=== PATIENT | female | born 1970 | race Caucasian/White ===

== ENCOUNTER 2023-05-24 10:02 | Outpatient (CLI) | payer BC, SELFPAY | END 2023-05-24 10:03 | disposition home or self-care (01) | PROVIDERS: PCP Family Medicine; Visit Provider Family Medicine | DX: Z00.00 Encounter for general adult medical examination without abnormal findings (principal); Z13.6 Encounter for screening for cardiovascular disorders; Z11.59 Encounter for screening for other viral diseases | CPT/HCPCS: 80053; 80061; 86803 ==

== ENCOUNTER 2023-05-31 15:36 | Outpatient (RCR) | payer BC, SELFPAY | END 2023-07-29 09:56 | disposition home or self-care (01) | PROVIDERS: PCP Family Medicine; Visit Provider Orthopaedic Surgery Sports Medicine | DX: S76.311A Strain of muscle, fascia and tendon of the posterior muscle group at thigh level, right thigh, initial encounter (principal); R26.9 Unspecified abnormalities of gait and mobility; R53.1 Weakness; M79.18 Myalgia, other site; M79.651 Pain in right thigh; Z51.89 Encounter for other specified aftercare | CPT/HCPCS: 97110; 97161 ==

== ENCOUNTER 2023-08-31 08:57 | Outpatient (CLI) | payer BC, SELFPAY ==
--- NOTE | 2023-08-31 09:15 | MM_ITS ---
Final Report Patient: ADAMA BONNER Facility:?[facility] Patient ID:?[id number] Site Patient ID:?[id number]. Site :?1970 Study:?XRay Breast Bilateral 3D W/CAD-08/31/2023 12:06:56 PM Ordering Physician:?Tea Ro Final Report: BILATERAL DIGITAL TOMOSYNTHESIS SCREENING MAMMOGRAM WITH COMPUTER-AIDED DETECTION CLINICAL HISTORY: Routine screening exam. COMPARISON: 04.16.20 TECHNIQUE: Digital tomosynthesis mammogram in CC and MLO projections including computer- aided detection (CAD). BREAST COMPOSITION: Scattered fibroglandular densities. FINDINGS: RIGHT Breast: Normal breast tissue. No masses or achritectural distortion. No suspicious calcifications or adenopathy. LEFT Breast: Normal breast tissue. No masses or achritectural distortion. No suspicious calcifications or adenopathy. IMPRESSION: No suspicious findings. RECOMMENDATIONS: Annual bilateral screening mammography. BI-RADS category 1. Negative. Dictated by Henrik Whittaker MD @ 09/02/2023 2:06:22 PM (Electronic Signature)
== END 2023-08-31 08:58 | disposition home or self-care (01) ==
LOC: MAMMO 08:57
PROVIDERS: PCP Family Medicine; Visit Provider Family Medicine
DX: Z12.31 Encounter for screening mammogram for malignant neoplasm of breast (principal)
CPT/HCPCS: 77063; 77067

== ENCOUNTER 2024-06-08 12:01 | Outpatient (CLI) | payer BC, SELFPAY | END 2024-06-08 12:02 | disposition home or self-care (01) | PROVIDERS: PCP Family Medicine; Visit Provider Family Medicine | DX: Z00.00 Encounter for general adult medical examination without abnormal findings (principal); R53.83 Other fatigue; F41.9 Anxiety disorder, unspecified; Z86.59 Personal history of other mental and behavioral disorders; Z13.0 Encounter for screening for diseases of the blood and blood-forming organs and certain disorders involving the immune mechanism; Z13.820 Encounter for screening for osteoporosis; Z13.6 Encounter for screening for cardiovascular disorders | CPT/HCPCS: 80053; 80061; 82306; 84443 ==

== ENCOUNTER 2025-01-08 15:40 | Outpatient (CLI) | payer BC, SELFPAY ==
--- NOTE | 2025-01-08 16:00 | MM_ITS ---
Patient: ADAMA BONNER Facility:?[facility] Patient ID:?[id number] Site Patient ID:?[id number]. Site :?1970 Study:?XRay-Breast 3D Dean SCREENING-01/08/2025 4:07:08 PM Ordering Physician:Ronak Metcalf Final Report: INDICATION: BILATERAL SCREENING MAMMOGRAM, ASYMPTOMATIC 54 Y/O FEMALE COMPARISON: 08/31/2023, 04/16/2020 TECHNIQUE: Digital mammogram in CC and MLO projections including computer-aided detection (CAD) and tomosynthesis. BREAST COMPOSITION: The breasts are heterogeneously dense, which may obscure small masses. FINDINGS: No suspicious findings. ASSESSMENT: BI-RADS 2 Benign RECOMMENDATION: Annual screening mammogram. A lay language report of this examination will be provided to the patient. Dictated by: Henrik Whittaker MD @ 01/10/2025 10:17:15 Signed by:?Henrik Whittaker MD @01/10/2025 10:17:15 AM (Electronic Signature)
--- OUTSIDE RECORDS SUMMARY | 2025-01-09 00:49 | XMS_ITS | Clinical Summary ---
Author Organization [facility] Address [address] [place] [address] Phone Care Team Providers Care Flatbed Owner Operator Name Role Phone Hollie Menezes Conditions or Problems Problem Name Problem Code Onset Date Status Entry Date Provider Comment Standard Description Annotate Neck pain 23385329 (SNOMED CT) Active Nayan Brown MD Neck pain Migraine headaches 92246421 (SNOMED CT) Active Nayan Brown MD Migraine Tension headache 418634594 (SNOMED CT) Active Nayan Brown MD Tension-type headache Medications Medication Instructions Start Date Stop Date Generic Name NDC Provider PREMPRO 0.625-2.5 MG TABS TAKE 1 TABLET BY MOUTH EVERY DAY conj estrog-medroxypr ogest page [id number] Nayan Brown MD FLUOXETINE HCL 20 MG CAPS TAKE 1 CAPSULE BY MOUTH EVERY DAY fluoxetine 23036820507 Nayan Brown MD SPIRONOLACTONE 100 MG TABS TAKE 1 TABLET BY MOUTH EVERY DAY IN THE MORNING spironolactone 51102945047 Nayan Brown MD Medications Administered No information available. Allergies, Adverse Reactions, Alerts Allergy Name Reaction Description Start Date Severity Statu s Provider NO KNOWN DRUG ALLERGIES Mild Activ e Nayan Brown MD Results Date Name Value Unit Range Flag Description Office Visit: MEM PROB, INK BLENDER JACE INTRACTABL BROWN 03/20/21 fax SMOK STATUS never smoker Toba bilingual account manager smoking status Internal Other: Authorizatio n - OBS [email or web address] Yes Authoriza tion: Release of Information - Authorize [facility] - Payment and Healthcare Operations ROIAUTHOTHER Yes Authoriz ation: Release of Information - Authorize Others/Insurance - Payment and Healthcare Operations HIECONSENT Yes Consent To Release information to the Health Information Exchange (HIE) [email or web address] Yes Authorizat ion: Authorization for Noran/MDC to leave messages, voicemail, send text messages, send emails AUTHRELHCARE Yes Authoriz ation: Release/Retrieval of Information to/from Healthcare Facilities, Pharmacy Benefit Payers and Providers AUTHPRIVPRAC Yes Authoriz ation: Notice of privacy practices AUTHBENEFIT Yes Authoriza tion: Assignment of Benefits and Payment Agreement Office Visit: Office Visit 1 Yr Follow Up Pt schd fax MEDS REVIEW Done Documenta tion of current medications (procedure) Plan of Care Type Date Detail Pending order Follow up teleme dicine Pending order Follow up teleme dicine Pending order Patient Instruct ions Pending order Telemedicine Fol low up Pending order Patient Instruct ions Pending order Telemedicine Fol low up Pending order Patient Instruct ions Pending order Obtain outside r ecords Procedures Code Procedure Name Date Entry Date [facility]-[id number] Documentation of current medicatio ns CPT-4055873 Trigeminal nerve blo ck/ Supraorbital/ Supratrochlear x2 ORDERS Patient Instructions ORDERS Telemedicine Follow up 06/23 CPT-2822585 Trigeminal nerve blo ck/ Supraorbital/ Supratrochlear x2 CPT-8399459 Trigeminal nerve blo ck/ Supraorbital/ Supratrochlear x2 ORDERS Patient Instructions ORDERS Telemedicine Follow up 03/20 [facility]-[id number] Documentation of current medicatio ns CPT-4507266 Trigeminal nerve blo ck/ Supraorbital/ Supratrochlear x2 ORDERS Patient Instructions [facility]-[id number] Documentation of current medicatio ns CPT-4755124 Trigeminal nerve blo ck/ Supraorbital/ Supratrochlear x2 ORDERS Obtain outside records 03/20 Vital Signs No information available. Immunizations No information available. Advance Directives No information available.
--- OUTSIDE RECORDS SUMMARY | 2025-01-09 00:49 | XMS_ITS | Clinical Summary ---
Author Organization [facility] Address [address] [place] [id number] Care Team Providers Care Division Chief Name Role Phone Calli Perez MD Primary Care Provider Unav ailable Allergies No known active allergies Medications medication order composer Biotin 1 capsule daily 0 08/28/2018 Active spironolactone (ALDACTONE) 100 mg tabletIndication s:Acne, unspecified acne type Take 0.5 Tablets (50 mg) by mouth once daily. 45 tablet. 1 05/31/2021 Active ALPRAZolam (XANAX) 0.25 mg tabletIndication s:Panic attacks Take 1 Tablet (0.25 mg) by mouth 2 times daily if needed for Anxiety. 6 tablet. 08/10/2021 Active conjugated estrogens-medrox yPROGESTERone, 0.625-2.5 mg, (Prempro) 0.625-2.5 mg per tabletIndication s:Hot flashes Take 1 Tablet by mouth once daily. 90 Tablet 12/27/2021 Active FLUoxetine (PROZAC) 20 mg capsuleIndicatio ns:Generalized anxiety disorder,Adjustm ent disorder with mixed anxiety and depressed mood Take 1 Capsule (20 mg) by mouth once daily. 30 Capsule 11/18/2022 Active Active Problems Problem Noted Date Diagnosed Date Parent refuses immunizations 04/04/2020 Acne vulgaris 04/03/2020 Generalized anxiety disorder 02/10/2018 Excessive or frequent menstruation 03/24/2007 Routine gynecological examination 03/24/2007 Overview (03/24/2007): last pap 01/20, neg Adjustment disorder with mixed anxiety and depre ssed mood 03/24/2007 Overview (03/24/2007): 06/18 Immunizations Immunization Administration Dates Next Due COVID-19 vaccine ([employer]byte 30mcg/0.3mL) CHARLENE Odom 06/12/2021,05/22/2021 Family History Medical History Relation Name Comments Cancer Brother 1 age 5, unk nown cancer Hyperlipidemia Brother 2 hyperchol. Valvular heart disease Brother 2 aorti c valve replaced and heart muscle shaved (?IHSS) Heart Disease Father ASCVD Hypertension Father Other Father obesity Psychiatric illness Father Lewy Bod y dementia Cancer-breast Maternal Aunt Cancer Mother melanoma Diabetes Mother NIDDM Heart Disease Mother sudden SC Hyperlipidemia Mother hyperchol. Hypertension Mother Other Mother obesity Genetic Other hypertension~ir regular heart beat~diabetes~thyroid~paxil Thyroid Disease Sister 1 hypo Psychiatric illness Sister 2 bipolar Relation Name Status Comments Brother 1 Alive Brother 2 Alive Father Maternal Aunt Mother Other Sister 1 Alive Sister 2 Alive Social History Tobacco Use Types Packs/Day Years Used Date Smoking Tobacco: Never Smokeless Tobacco: Never Tobacco Cessation:Counseling Given: Yes Alcohol Use Standard Drinks/Week Comments Yes 0 (1 standard drink = 0.6 oz pur e alcohol) 2-4 drinks per month PHQ-2 Answer Date Recorded PHQ-2 TOTAL SCORE 0 06/25/2021 Social Connections Answer Date Recorded Frequency of Communication with Friends and Fami ly Not on file 07/15/2021 Financial Resource Strain Answer Date R ecorded Difficulty of Paying Living Expenses Not on file 07/15/2021 Difficulty of Paying Living Expenses Not on file 07/15/2021 Comments No Sex and Gender Information Value Date Recorded Sex Assigned at Not on file Legal Sex Female 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 Gender Identity Not on file Sexual Orientation Not on file 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 file Not on file Not on file Obstetrics History Para Term AB IAB SAB Ectopic Multiple Livin g Live Births 6 4 0 2 2 4 Date Outcome GA Total Labor Labor/2nd/3rd Weight Sex Type Anes PTL Olamide A1 A5 Name Clin SAB SAB Para Para Para Para Last Filed Vital Signs Vital Sign Reading Time Taken Comments Blood Pressure 110/70 03/02/2021 3:44 PM CDT Pulse 76 03/02/2021 3:44 PM CDT Temperature 36.8 C (98.2 F) 07/24/2020 11:21 AM ANIMAL SURGEON Respiratory Rate 15 07/24/2020 11:2 1 AM ANIMAL SURGEON Oxygen Saturation 100% 07/24/2020 11: 21 AM ANIMAL SURGEON Inhaled Oxygen Concentration - - Weight 65.6 kg (144 lb 11.2 oz) 03/02/2021 3:44 PM CDT Height 160 cm (5' 3) 07/24/2020 11:21 AM ANIMAL SURGEON Body Mass Index 25.63 07/24/2020 11:21 AM ANIMAL SURGEON Plan of Treatment Health Maintenance Due Date Last Done Comments Tdap 1982 HIV for age 15-65 1986 Hepatitis C screening for ag e 18-79 1989 Hepatitis B series for 19+ ( 1 of 3 - 19+ 3-dose series) 1990 Colonoscopy through age 75 2016 Tetanus booster 12/19/2019 12/18/2009 (Declined) Mammogram for age 45-75 04/16/2021 04/16/2020, 11/28 Pneumococcal series for age 50+ (1 of 1 - PCV) 2021 Zoster (shingles) series for age 50+ (1 of 2) 2021 BMI (ht and wt on same day) for age 18+ 07/24/2021 07/24/2020, 04/04/2020, 04/03/2019, Additional history exists Depression screening for age 12+ 06/21/2022 06/21/2021, 04/04/2020, 04/03/2019, Additional history exists Pap test for age 21-65 04/04/2023 , 12/22/2015, 12/18/2009 (Declined), Additional history exists COVID-19 vaccine series (2023- season) 2024 06/12/2021, 05/22/2021 Influenza Vaccine (Season Ended) 2025 Lipids for age 45-75 04/04/2025 04/04/2020, 12/12/2015, 12/18/2009 Procedures Procedure Name Priority Date/Time Associated Diagnosis Comments XR MAMMO JSEUS MANUEL BILAT SCREEN Routine 04/16/2020 10:16 AM CDT Breast cancer screening by mammogram LIPID PANEL Routine 04/04/2020 9:47 AM CDT Lipid screening CAPACITOR ASSEMBLER THIN PREP PAP SCREEN IMAGED Routine 04/04/2020 9:39 AM CDT Screening for cervical cancer from Last 3 Months or Most Recently Relevant to Health Maintenance Results * XR MAMMO JESUS MANUEL BILAT SCREEN [[id number]] (04/16/2020 10:16 AM CDT) Anatomical Region Laterality Modality BREASTS, Breast Left, Breast Right Bilateral Mammography Impressions 04/17/2020 4:21 PM CDT There is no radiographic evidence for malignancy. Recommend annual mammograms. A lay language report of this examination will be provided to the patient. MAMMOGRAM ASSESSMENT: ACR 1 Negative Narrative 04/17/2020 4:21 PM CDT XR MAMMO JESUS MANUEL BILAT SCREEN [[id number]] CLINICAL HISTORY: This is an asymptomatic 49 y.o. patient. INDICATION FOR EXAM: Mammogram Screening. TECHNIQUE: CC & MLO views were obtained. This digital study was evaluated with the assistance of Computer-Aided Detection. Breast Tomosynthesis was used in interpretation. COMPARISON FILM: [facility] FINDINGS: Mammographically, the breast tissue is heterogeneously dense, which could obscure detection of small masses. There are no dominant masses, suspicious micro calcifications or areas of architectural distortion. Calli Perez MD MAMMO Final Resul t * LIPID PANEL (04/04/2020 9:47 AM CDT) CHOLESTEROL,TOTAL 199 100 - 199 mg/dL 04/04/2020 3:59 PM CDT [facility] TRIGLYCERIDES 77 <150 mg/dL 04/04/2020 3:59 PM CDT [facility] HDL CHOLESTEROL 82 >40 mg/dL 0 3:59 PM CDT [facility] NON-HDL CHOLESTEROL 117 <145 mg/dl 04/04/2020 3:59 PM CDT [facility] CHOL/HDL RATIO 2.43 <4.50 04/04/2020 3:59 PM CDT [facility] LDL CHOLESTEROL 102 <=130 mg/dL 04/04/2020 3:59 PM CDT [facility] PROVIDER ORDERED STATUS RANDOM 04/04/2020 3:59 PM CDT [facility] Blood BLOOD SPECIMEN / Unknown Venipuncture / Unknown 04/04/2020 9:47 AM CDT 04/04/2020 9:47 AM CDT us Calli Perez MD CHEMISTRY Final Resul t [facility] [address] [place] [address], [place] * CAPACITOR ASSEMBLER THIN PREP PAP SCREEN IMAGED (04/04/2020 9:39 AM CDT) Case Report Gynecologic Cytology Report Case: [id number] Authorizing Provider: Calli Perez MD Collected: 04/04/2020 0939 Ordering Location: [facility] Received: 04/04/2020 0939 Clinic First Screen: Bozena Durant Specimen: CAPACITOR ASSEMBLER ThinPrep Vial Screening, Cervical 04/14/2020 5:33 PM CDT [facility] INTERPRETATION/ RESULT NEGATIVE FOR INTRAEPITHELIAL LESION OR MALIGNANCY (NIL) (none) 04/14/2020 5:33 PM CDT [facility] at 1733 CDT SPECIMEN ADEQUACY Satisfactory for evaluation No endocervical component seen 04/14/2020 5:33 PM CDT [facility] HPV REQUEST HPV if ASCUS 04/14/2020 5:33 PM CDT [facility] Date of LMP unknown 04/14/2020 5:33 PM CDT [facility] Last Pap Date 12/22/15 04/14/2020 5:33 PM CDT [facility] Last Pap Result NIL 0 5:33 PM CDT [facility] Abnormal Pap or Talmage Bx in last 5 years No 04/14/2020 5:33 PM CDT [facility] Menstrual Status Postmenopausal 04/14/2020 5:33 PM CDT [facility] Talmage Bx Done Today No 04/14/2020 5:33 PM CDT [facility] Additional Information None given 04/14/2020 5:33 PM CDT [facility] Comment: Cytology is screened at [facility] - [address], [place] [address] and [facility] - [address], [place] [address] and [facility] - [address] [place] [address] Interpreted at [facility] - [address], [place] [address] Automated Review Successful 04/14/2020 5:33 PM CDT [facility] Comment:Specimen processed s uccessfully by automated field naturalist device, ThinPrep Imaging System, [employer] Note The pap test is a screening technique, not a diagnostic procedure. It is used primarily to screen for squamous cancers and precursor lesions. Published studies have shown that it is subject to both false negative and false positive results. The pap test should not be used as the sole means to diagnose or exclude pre-malignant and malignant lesions. 04/14/2020 5:33 PM CDT [facility] Other (Cervical) Non-Blood / Unknown 04/04/2020 9:39 AM CDT 04/04/2020 9:39 AM CDT us Calli Perez MD PATHOLOGY/CYTOLOGY Final Re sult [facility] [address] [place] [address], [place] from Last 3 Months or Most Recently Relevant to Health Maintenance Insurance [employer] Care Teams Division Chief Relationship Specialty Start Date End Date Calli Perez MD PCP - General Family Practice 12/11/15
== END 2025-01-08 15:41 | disposition home or self-care (01) ==
LOC: MAMMO 15:41
PROVIDERS: PCP Family Medicine; Visit Provider Family Medicine
DX: Z12.31 Encounter for screening mammogram for malignant neoplasm of breast (principal); R92.333 Mammographic heterogeneous density, bilateral breasts
CPT/HCPCS: 77063; 77067

== ENCOUNTER 2025-05-23 11:39 | Outpatient (CLI) | payer BC, SELFPAY | END 2025-05-23 11:40 | disposition home or self-care (01) | PROVIDERS: PCP Family Medicine; Visit Provider Obstetrics & Gynecology | DX: F52.0 Hypoactive sexual desire disorder (principal) | CPT/HCPCS: 84270; 84402; 84403; 84443 ==

== ENCOUNTER 2025-06-17 10:19 | Outpatient (CLI) | payer BC, SELFPAY ==
[2025-06-19 17:11] LABS: HPV Source Endocervical
[2025-06-21 09:50] LABS: Pap Test Digital Imaging Done
== END 2025-06-17 10:20 | disposition home or self-care (01) ==
PROVIDERS: PCP Family Medicine; Visit Provider Family Medicine
DX: Z00.00 Encounter for general adult medical examination without abnormal findings (principal); Z12.4 Encounter for screening for malignant neoplasm of cervix; N84.1 Polyp of cervix uteri
CPT/HCPCS: 80053; 80061; 87624; 87625; 88141; 88142; 88175